=== PATIENT | female | born 1970 | race Caucasian/White ===

== ENCOUNTER 2017-11-07 21:47 | Emergency (ER) | payer OTHER ==
[~2017-11-07] VITALS: Ht 162.6 cm; Wt 68.0 kg
[2017-11-07 22:04] VITALS: BP 124/76; PULSE 82; RESP 16; TEMP 98.4; O2SAT 98
--- NOTE | 2017-11-07 22:19 | PD ---
HPI . Intoxication she presents today for Chief Complaint: Alcohol/Drug Intoxication Time Seen by Provider: 22:03 Travel History International Travel<30 days: No Contact w/Intl Traveler<30days: No Traveled to known affect area: No History of Present Illness HPI This patient presents to us as a [place] Act. The patient reports that she is here on vacation from [place]. The police were called to the hotel for a disturbance. They found her to be markedly intoxicated and unsteady on her feet. The security police reports that he "could not in good conscience leave her there." [facility] Past Medical History Asthma: Yes Immunizations Current: Yes Pancreatitis: Yes Tetanus Vaccination: Unknown Influenza Vaccination: No ?: Unknown Social History Alcohol Use: Yes (everyday) Tobacco Use: Yes Substance Use: No Allergies-Medications (Allergen,Severity, Reaction): Coded Allergies: penicillin G (Verified Allergy, Severe, Anaphylaxis, 11/07/17) Reported Meds & Prescriptions Reported Meds & Active Scripts Active No Active Prescriptions or Reported Medications Review of Systems ROS Limitations: Intoxication Physical Exam Narrative GENERAL: Very intoxicated. She is a little bit unsteady on her feet. SKIN: warm/dry. HEAD: Normocephalic. Atraumatic. EYES: Pupils equal and round. Extraocular movements are intact. ENT: Mucous membranes pink and moist. NECK: Supple. Full range of motion without pain.. CARDIOVASCULAR: Regular rate and rhythm. RESPIRATORY: No accessory muscle use. Clear to auscultation. Breath sounds equal bilaterally. GASTROINTESTINAL: Abdomen soft. Nontender. Bowel sounds present. Nondistended. MUSCULOSKELETAL: No obvious deformities. Normal muscle tone. NEUROLOGICAL: Awake and alert. No obvious cranial nerve deficits. Motor grossly within normal limits. Normal speech. PSYCHIATRIC: Unable to assess. The patient is very intoxicated. Data Data Last Documented VS Vital Signs Date Time Temp Pulse Resp B/P (MAP) Pulse Ox O2 Delivery O2 Flow Rate FiO2 11/07/17 22:04 98.4 82 16 124/76 (92) 98 MDM Medical Decision Making Medical Screen Exam Complete: Yes Emergency Medical Condition: Yes Differential Diagnosis Differential diagnosis of altered mental status includes but is not limited to infection, electrolyte abnormality, neurological event, intoxication, encephalitis, meningitis Narrative Course This patient is brought to us as a [place] Act because of alcohol intoxication. The police report that they were called to her hotel because of the disturbance. They found her to be intoxicated and unsteady on her feet. They subsequently brought her here. This patient is medically clear for discharge when she is either sober or has someone else who is sober to take her home. Diagnosis Primary Impression: Acute alcohol intoxication Qualified Codes: F10.929 - Alcohol use, unspecified with intoxication, unspecified Patient Instructions: Alcohol Intoxication (DC), General Instructions Scripts No Active Prescriptions or Reported Meds Disposition: 01 DISCHARGE HOME Condition: Stable Octavia Díaz MD Nov 07, 2017 22:19
== END 2017-11-07 22:50 | disposition home or self-care (01) ==
LOC: NEPD 21:47
DX: F10.129 Alcohol abuse with intoxication, unspecified (principal); J45.909 Unspecified asthma, uncomplicated; Z72.0 Tobacco use; Z88.0 Allergy status to penicillin
CPT/HCPCS: 99282